=== PATIENT | male | born 1985 | race African-American/Black ===

== ENCOUNTER 2019-02-13 20:40 | Emergency (ER) | payer BC ==
[~2019-02-13] VITALS: Ht 180.3 cm; Wt 95.3 kg
[2019-02-13 20:50] VITALS: BP 160/90
--- NOTE | 2019-02-13 20:53 | NUR ---
TO LOBBY A/W BED, THROAT SWAB FOR STREP SENT TO LAB
--- NOTE | 2019-02-13 21:21 | NUR ---
PT AMBULATED TO ER BED 04
--- NOTE | 2019-02-13 21:30 | NUR ---
33 YO M BIB SELF C/O PAINFUL SWALLOWING/TALKING AND SWOLLEN TONSILS X 1.5 DAYS. DENIES FEVER, RUNNY NOSE COUGH, NVD. LUNGS CTA. PMH-- DENIES RX-- TYLENOL @ 1400, NO RELIEF
--- NOTE | 2019-02-13 21:48 | NUR ---
Dr. Potts examining patient.
--- NOTE | 2019-02-13 21:58 | NUR ---
FLU SWAB COLLECTED. GIVEN TO LAB.
[2019-02-13 22:42] VITALS: BP 160/90
--- NOTE | 2019-02-13 22:42 | NUR ---
Patient discharged with v/s stable. Written and verbal after care instructions given and explained. Patient alert, oriented and verbalized understanding of instructions. Ambulatory with steady gait. All questions addressed prior to discharge. ID band removed. Patient advised to follow up with PMD. Rx of viscous oral idocaine, Motrin and Amoxicillin given. Patient educated on indication of medication including possible reaction and side effects. Opportunity to ask questions provided and answered.
== END 2019-02-13 22:42 | disposition home or self-care (01) ==
LOC: MED 20:40
DX: J02.8 Acute pharyngitis due to other specified organisms (principal); B97.89 Other viral agents as the cause of diseases classified elsewhere; B96.89 Other specified bacterial agents as the cause of diseases classified elsewhere
CPT/HCPCS: 87081; 87804; 99283